=== PATIENT | male | born 1980 | race Caucasian/White ===

== ENCOUNTER → 2018-03-24 | Outpatient (CLI) | payer OTHER ==
--- NOTE | 2018-03-25 04:02 | REP ---
Clinical: Acute right elbow pain . Technique: AP, lateral, bilateral oblique views of the right elbow. Findings: No acute fracture or dislocation is appreciated. Joint spaces and surrounding soft tissues appear normal. Lateral view demonstrates normal positioning to the anterior and posterior fat pads without evidence for effusion/hemarthrosis. No subcutaneous emphysema or foreign body identified. Impression: Normal right elbow radiographs. Electronically Signed by Pedro Luis Barger MD 03/25/2018 03:53 A
--- NOTE | 2018-03-25 04:05 | REP ---
Clinical: Neck pain radiating to the right upper extremity . Technique: AP, lateral, flexion/extension, bilateral oblique, and open-mouth views. Findings: Alignment and lordosis is maintained. There is no evidence for acute fracture / compression injury or subluxation. Age-related changes are appreciated including subtle increase sclerosis and disc space narrowing with marginal spurring at the C6-7 level. Oblique views demonstrate patent neural foramen. Open mouth view demonstrates normal C1-C2 articulation and odontoid process. Impression: Mild age-related degenerative changes at C6-7. Electronically Signed by Pedro Luis Barger MD 03/25/2018 03:57 A
--- NOTE | 2018-03-25 04:07 | REP ---
Clinical: Right shoulder pain. Technique: Internal rotation, external rotation, and Y view of the right shoulder. Findings: Acromioclavicular and glenohumeral joints appear relatively intact and within normal limits for age. Subtle irregularity along the inferior margin of the glenoid rim cannot be excluded and should be correlated with the patient's symptoms. The subacromial space is normal. No periarticular calcifications or loose bodies identified. No acute fracture or dislocation. Impression: Age-related degenerative changes as noted above. Correlation is recommended. Electronically Signed by Pedro Luis Barger MD 03/25/2018 03:58 A
== END ==
LOC: M WUC 16:13
PROVIDERS: ATTEND Physician Assistant
DX: M50.323 Other cervical disc degeneration at C6-C7 level (principal); M25.78 Osteophyte, vertebrae; M54.12 Radiculopathy, cervical region; M25.521 Pain in right elbow; M25.511 Pain in right shoulder

== ENCOUNTER → 2018-04-28 | Outpatient (CLI) | payer OTHER ==
[2018-04-28 19:34] LABS: C REACTIVE PROTEIN QUANTITATIV < 0.30 MG/DL (0.00-0.30); RHEUMATOID FACTOR QUANT < 10.0 IU/ML (<15.0); URIC ACID 5.6 MG/DL (3.5-7.2)
[2018-04-28 19:47] LABS: FOLATE 14.1 NG/ML
[2018-05-01 08:39] LABS: VITAMIN B12 LEVEL 419 PG/ML (232-1245)
[2018-05-05 00:19] LABS: ANTINUCLEAR ANTIBODIES DIRECT Negative (Negative); HLA-B27 Negative (.); Lyme Disease IgG/IgM Antibodie <0.91 ISR (0.00-0.90); Lyme Disease IgM Ab Quantitati <0.80 index (0.00-0.79)
== END ==
LOC: M WUC 16:14
PROVIDERS: ATTEND Physician Assistant
DX: M50.30 Other cervical disc degeneration, unspecified cervical region (principal)

== ENCOUNTER → 2019-07-27 | Outpatient (CLI) | payer OTHER ==
--- NOTE | 2019-07-28 11:52 | SLEEPCENT ---
DATE OF PROCEDURE: 07/27/2019 ORDERED BY: MAMADOU Mc Nocturnal polysomnography was performed for evaluation of sleep physiology in this patient with a history of excessive somnolence and nonrestorative sleep who experiences choking in the night. 7 hours and 42 minutes of data were reviewed. There were 328.5 minutes of sleep identified. Sleep latency was prolonged at 45 minutes. Rapid eye movement (REM) latency was prolonged at 116 minutes. Sleep architecture showed some initial poor progression. There were two REM cycles noted. Overall sleep efficiency was 71.9%. The patient's electrocardiogram showed a sinus rhythm with an average heart rate of 66 beats per minute. Electroencephalogram (EEG) showed normal waveforms for awake and sleep. There were 39 respiratory events identified of 10 seconds in duration or greater for an apnea-hypopnea index of 7.1. The events were primarily obstructive not exclusive to sleep stage, more frequent but not exclusive to supine posture. Arousals from respiratory events occurred twice per hour and oxygen desaturations were seen into the 80s. There was some limb activity. Limb movement arousal index was 2.7. IMPRESSION: Obstructive sleep apnea syndrome (G47.33). Apnea-hypopnea index 7.1. RECOMMENDATIONS: The patient should be encouraged to return to the sleep disorder center for pressure therapy. In the interim, alcohol and sedative avoidance should be practiced and caution exercised during operation of motor vehicles.
== END ==
LOC: M SLEEP 20:00
PROVIDERS: ATTEND Physician Assistant
DX: G47.33 Obstructive sleep apnea (adult) (pediatric) (principal)

== ENCOUNTER → 2019-10-05 | Outpatient (CLI) | payer OTHER ==
--- NOTE | 2019-10-11 14:26 | SLEEPCENT ---
DATE OF STUDY: 10/05/2019 ORDERED BY: Pedro Luis Waller Nocturnal polysomnography was performed for the titration of pressure therapy in this patient with obstructive sleep apnea syndrome and apnea-hypopnea index of 7.1. For testing, the patient was fit with a ResMed Air Touch F20 full face mask of medium size and 4 cm of water pressure were applied to the circuit and the lights were extinguished. 7 hours and 28 minutes of data were reviewed. There were 363 minutes of sleep identified. Sleep latency was prolonged at 50 minutes. REM latency was normal at 96 minute. Sleep architecture was fair with 3 REM cycles. Overall sleep efficiency was 81.8%. The electrocardiogram showed a sinus rhythm with an average heart rate of 68 beats per minute. Electroencephalogram (EEG) showed normal waveforms for awake and sleep. Respiratory events were best palliated with C-PAP at a pressure of +9. There was some persistence of limb activity. Limb movement arousal index on this occasion was 7.8 events per hour. IMPRESSION: Obstructive sleep apnea syndrome (G47.33). RECOMMENDATION: Nightly use of pressure therapy at 9 cm of water.
== END ==
LOC: M SLEEP 20:00
PROVIDERS: ATTEND Physician Assistant
DX: G47.33 Obstructive sleep apnea (adult) (pediatric) (principal)

== ENCOUNTER 2024-10-20 16:35 | Emergency (ER) | payer OTHER ==
[~2024-10-20] VITALS: Ht 185.4 cm; Wt 119.9 kg
[2024-10-20] MEDS ORDERED: CIPR500T39 (16:47)
[2024-10-20 17:38] LABS: BASO # 0.1 10^3/uL (0.0-0.2); BASO % 0.6 % (0.0-1.0); EOS # 0.1 10^3/uL (0.0-0.5); EOS % 1.1 % (0.0-3.0); LYMPH # 1.8 10^3/uL (1.5-5.0); LYMPH % 18.0 % (24.0-44.0); MONO # 0.7 10^3/uL (0.0-0.8); MONO % 7.2 % (2.0-8.0); NEUTROPHILS # 7.3 10^3/uL (1.5-8.5); NEUTROPHILS % 72.5 % (36.0-66.0); PLATELET COUNT, AUTOMATED 211 10^3/uL (150-450)
[2024-10-20 17:57] LABS: ALT/SGPT 34 U/L (7.0-40); AST/SGOT 27 U/L (<34); CALCIUM LEVEL 9.0 MG/DL (8.5-10.1); CARBON DIOXIDE LEVEL 26 MMOL/L (20-31); CHLORIDE LEVEL 103 MMOL/L (98-107); CREATININE FOR GFR 1.02 MG/DL (0.70-1.30); GLOMERULAR FILTRATION RATE > 90.0 (>60); POTASSIUM SERUM 4.3 MMOL/L (3.5-5.1); SODIUM LEVEL 142 MMOL/L (136-145)
[2024-10-20] MEDS ORDERED: ISOVUE-370 76% 100 ML VIAL As Ordered ONE (18:48)
[2024-10-20] MEDS: KETOROLAC 30 MG/ML 1 ML VIAL IV ONE (18:49)
[2024-10-20 21:57] VITALS: BP 154/92; TEMP 97.7; O2SAT 97
[2024-10-20] MEDS ORDERED: METR-265 PO (22:35)
== END 2024-10-20 22:44 | disposition home or self-care (01) ==
LOC: M ED 16:35
DX: K65.4 Sclerosing mesenteritis (principal); Z79.2 Long term (current) use of antibiotics; Z79.899 Other long term (current) drug therapy
CPT/HCPCS: 74177; 80048; 80076; 83690; 85025; 96374; 99284; J1885; Q9967

== ENCOUNTER 2024-12-15 08:39 | Day surgery (SDC) | payer OTHER ==
[~2024-12-15] VITALS: Ht 185.4 cm; Wt 119.7 kg
[~2024-12-15 08:39] MED LIST: CEPH500C PO; CIPR500T39; METR-265 PO
[2024-12-15] MEDS ORDERED: LIDOCAINE 2% 100 MG/5 ML SDV (FOR ANES.) As Ordered ONE (10:09)
[2024-12-15 10:31] VITALS: TEMP 98.4
[2024-12-15 10:44] VITALS: BP 132/77; O2SAT 98
== END 2024-12-15 10:51 | disposition home or self-care (01) ==
LOC: M OPP 08:39
PROVIDERS: ATTEND Surgery
DX: K64.0 First degree hemorrhoids (principal); R10.32 Left lower quadrant pain; G47.30 Sleep apnea, unspecified; Z79.899 Other long term (current) drug therapy